=== PATIENT | male | born 1945 ===

== ENCOUNTER 2018-01-31 16:08 | Inpatient (IN) | payer MEDICARE, BC ==
--- NOTE | 2018-01-31 16:28 | ED ---
General Adult HPI - General Chief complaint: Altered Mental Status Stated complaint: Altered Mental Status Time Seen by Provider: 01/31/18 16:15 Source: EMS, RN notes reviewed Mode of arrival: EMS Limitations: altered mental status, physical limitation - History of Present Illness Initial comments: Patient is a 72-year-old male presenting to the emergency department from [facility]. Patient reportedly was unresponsive around 12:30 or so today and then had decreased responsiveness following that. Patient reportedly has returned to baseline at this time. Patient does have a history of aphasia. Patient is unable to provide any significant history at this time. - Related Data Home Medications Medication Instructions Recorded Confirmed ALPRAZolam [Xanax] 0.5 mg PO DAILY 07/04/15 01/31/18 Aspirin [Adult Low Dose Aspirin EC] 81 mg PO HS 07/04/15 01/31/18 Bisacodyl 10 mg RECTAL DIRECTED PRN 07/04/15 01/31/18 Carvedilol [Coreg] 6.25 mg PO BID 07/04/15 01/31/18 Docusate Sodium [Dok] 100 mg PO BID 07/04/15 01/31/18 Latanoprost Ophth [Xalatan 0.005%] 1 drops BOTH EYES HS 07/04/15 01/31/18 Pravastatin Sodium [Pravachol] 40 mg PO HS 07/04/15 01/31/18 amLODIPine BESYLATE [Norvasc] 10 mg PO DAILY 07/04/15 01/31/18 Acetaminophen [Tylenol 8 Hour] 650 mg PO TID@0700,1300,1900 01/31/18 01/31/18 Divalproex Sodium [Depakote 125 mg PO TID@0700,1300,1900 01/31/18 01/31/18 Sprinkle] Furosemide [Lasix] 20 mg PO BID 01/31/18 01/31/18 Memantine [Namenda] 10 mg PO BID 01/31/18 01/31/18 OLANZapine [ZyPREXA] 5 mg PO HS@199901/31/18 01/31/18 Potassium Chloride 8 meq PO DAILY 01/31/18 01/31/18 Timolol 0.25% Ophth Soln [Timoptic 1 drop BOTH EYES DAILY 01/31/18 01/31/18 0.25% Ophth Soln] Allergies Allergy/AdvReac Type Severity Reaction Status Date / Time metoprolol Allergy Unknown Verified 01/31/18 16:18 nefazodone Allergy Rash/Hives Verified 01/31/18 16:18 pneumococcal vaccine Allergy Unknown Verified 01/31/18 16:18 trazodone Allergy Unknown Verified 01/31/18 16:18 Review of Systems ROS Statement: Those systems with pertinent positive or pertinent negative responses have been documented in the HPI. ROS Other: All systems not noted in ROS Statement are negative. Limitations: ROS unobtainable due to patients medical condition Past Medical History Past Medical History: Coronary Artery Disease (CAD), Dementia, GERD/Reflux, Hypertension Additional Past Medical History / Comment(s): aphasia, diff understanding directions, see Dr Woodruff H&P hypertrophic Cardiomyopathy, AICD Implantation, Possible Mitral Valve Repair History of Any Multi-Drug Resistant Organisms: None Reported Past Surgical History: AICD, Orthopedic Surgery Additional Past Surgical History / Comment(s): no other surgical hx at [facility], arthroscopic shoulder surgery Past Anesthesia/Blood Transfusion Reactions: Unable to Obtain, Previous Problems w/ Anesthesia Additional Past Anesthesia/Blood Transfusion Reaction / Comment(s): "major mental status changes" after shoulder surgery per daughter Summer. no family hx at [facility] Type of Cardiac Device: AICD Device Placement Date:: unknown Past Psychological History: Bipolar Smoking Status: Never smoker - Past Family History Mother Family Medical History: Unable to Obtain Additional Family Medical History / Comment(s): no family hx at [facility] General Exam Limitations: altered mental status, physical limitation General appearance: alert, other (Patient is alert and resting comfortably in bed. Patient does follow some simple commands.) Head exam: Present: atraumatic Eye exam: Present: normal appearance, PERRL ENT exam: Present: normal oropharynx Neck exam: Present: normal inspection. Absent: tenderness Respiratory exam: Present: normal lung sounds bilaterally Cardiovascular Exam: Present: regular rate, normal rhythm GI/Abdominal exam: Present: soft. Absent: tenderness Extremities exam: Present: normal inspection. Absent: tenderness Neurological exam: Present: alert, altered, other (Limited exam. Patient is able to wiggle toes on both feet however refuses to attempt to lift legs. 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 Nonverbal.) Expanded Eye Response: (4) open spontaneously Motor Response: (6) obeys commands Verbal Response: (1) no verbal response Psychiatric exam: Present: other (Nonverbal) Skin exam: Present: normal color Course Vital Signs 01/31/18 01/31/18 01/31/18 16:10 17:57 19:08 Temperature 95.4 F L Pulse Rate 71 65 63 Respiratory 16 16 16 Rate Blood Pressure 127/71 106/75 94/64 O2 Sat by Pulse 98 99 98 Oximetry EKG Findings - EKG Comments: EKG Findings:: Paced rhythm at 71. [place] 144. QRS to 2. QTC 496. QTc of 38. Left axis. Wide QRS complex. Nonspecific ST-T. Medical Decision Making - Medical Decision Making Patient reevaluated and resting comfortably in bed. Family updated. Case discussed with practitioner Farrah, covering for Dr. Perdomo, who will admit for Dr. Flores. - Lab Data Result diagrams: 01/31/18 16:31 01/31/18 16:31 Lab Results 01/31/18 01/31/18 01/31/18 Range/Units 16:31 16:31 16:31 WBC 9.4 (3.8-10.6) k/uL RBC 4.65 (4.30-5.90) m/uL Hgb 14.3 (13.0-17.5) gm/dL Hct 43.1 (39.0-53.0) % MCV 92.6 (80.0-100.0) fL MCH 30.8 (25.0-35.0) pg MCHC 33.2 (31.0-37.0) g/dL RDW 13.8 (11.5-15.5) % Plt Count 207 (150-450) k/uL Neutrophils % 69 % Lymphocytes % 19 % Monocytes % 6 % Eosinophils % 3 % Basophils % 0 % Neutrophils # 6.5 (1.3-7.7) k/uL Lymphocytes # 1.8 (1.0-4.8) k/uL Monocytes # 0.6 (0-1.0) k/uL Eosinophils # 0.3 (0-0.7) k/uL Basophils # 0.0 (0-0.2) k/uL PT (9.0-12.0) sec INR (<1.2) APTT (22.0-30.0) sec Sodium 144 (137-145) mmol/L Potassium 4.4 (3.5-5.1) mmol/L Chloride 98 (98-107) mmol/L Carbon Dioxide 34 H (22-30) mmol/L Anion Gap 12 mmol/L BUN 17 (9-20) mg/dL Creatinine 1.09 (0.66-1.25) mg/dL Est GFR (CKD-EPI)AfAm 77 (>60 ml/min/1.73 sqM) Est GFR (CKD-EPI)NonAf 67 (>60 ml/min/1.73 sqM) Glucose 116 H (74-99) mg/dL Calcium 9.1 (8.4-10.2) mg/dL Total Bilirubin 0.5 (0.2-1.3) mg/dL AST 19 (17-59) U/L ALT 23 (21-72) U/L Alkaline Phosphatase 70 (38-126) U/L Total Creatine Kinase 80 (55-170) U/L CK-MB (CK-2) 2.2 (0.0-2.4) ng/mL CK-MB (CK-2) Rel Index 2.8 Troponin I <0.012 (0.000-0.034) ng/mL Total Protein 7.4 (6.3-8.2) g/dL Albumin 4.0 (3.5-5.0) g/dL Urine Color Urine Appearance (Clear) Urine pH (5.0-8.0) Ur Specific [place] (1.001-1.035) Urine Protein (Negative) Urine Glucose (UA) (Negative) Urine Ketones (Negative) Urine Blood (Negative) Urine Nitrite (Negative) Urine Bilirubin (Negative) Urine Urobilinogen (<2.0) mg/dL Ur Leukocyte Esterase (Negative) Urine Opiates Screen (NotDetected) Ur Oxycodone Screen (NotDetected) Urine Methadone Screen (NotDetected) Ur Propoxyphene Screen (NotDetected) Ur Barbiturates Screen (NotDetected) U Tricyclic Antidepress (NotDetected) Ur Phencyclidine Scrn (NotDetected) Ur Amphetamines Screen (NotDetected) U Methamphetamines Scrn (NotDetected) U Benzodiazepines Scrn (NotDetected) Urine Cocaine Screen (NotDetected) U Marijuana (THC) Screen (NotDetected) 01/31/18 01/31/18 Range/Units 16:31 16:50 WBC (3.8-10.6) k/uL RBC (4.30-5.90) m/uL Hgb (13.0-17.5) gm/dL Hct (39.0-53.0) % MCV (80.0-100.0) fL MCH (25.0-35.0) pg MCHC (31.0-37.0) g/dL RDW (11.5-15.5) % Plt Count (150-450) k/uL Neutrophils % % Lymphocytes % % Monocytes % % Eosinophils % % Basophils % % Neutrophils # (1.3-7.7) k/uL Lymphocytes # (1.0-4.8) k/uL Monocytes # (0-1.0) k/uL Eosinophils # (0-0.7) k/uL Basophils # (0-0.2) k/uL PT 11.7 (9.0-12.0) sec INR 1.2 H (<1.2) APTT 25.4 (22.0-30.0) sec Sodium (137-145) mmol/L Potassium (3.5-5.1) mmol/L Chloride (98-107) mmol/L Carbon Dioxide (22-30) mmol/L Anion Gap mmol/L BUN (9-20) mg/dL Creatinine (0.66-1.25) mg/dL Est GFR (CKD-EPI)AfAm (>60 ml/min/1.73 sqM) Est GFR (CKD-EPI)NonAf (>60 ml/min/1.73 sqM) Glucose (74-99) mg/dL Calcium (8.4-10.2) mg/dL Total Bilirubin (0.2-1.3) mg/dL AST (17-59) U/L ALT (21-72) U/L Alkaline Phosphatase (38-126) U/L Total Creatine Kinase (55-170) U/L CK-MB (CK-2) (0.0-2.4) ng/mL CK-MB (CK-2) Rel Index Troponin I (0.000-0.034) ng/mL Total Protein (6.3-8.2) g/dL Albumin (3.5-5.0) g/dL Urine Color Yellow Urine Appearance Clear (Clear) Urine pH 5.5 (5.0-8.0) Ur Specific [place] 1.022 (1.001-1.035) Urine Protein Trace H (Negative) Urine Glucose (UA) Negative (Negative) Urine Ketones Trace H (Negative) Urine Blood Negative (Negative) Urine Nitrite Negative (Negative) Urine Bilirubin Negative (Negative) Urine Urobilinogen 6.0 (<2.0) mg/dL Ur Leukocyte Esterase Negative (Negative) Urine Opiates Screen Not Detected (NotDetected) Ur Oxycodone Screen Not Detected (NotDetected) Urine Methadone Screen Not Detected (NotDetected) Ur Propoxyphene Screen Not Detected (NotDetected) Ur Barbiturates Screen Not Detected (NotDetected) U Tricyclic Antidepress Not Detected (NotDetected) Ur Phencyclidine Scrn Not Detected (NotDetected) Ur Amphetamines Screen Not Detected (NotDetected) U Methamphetamines Scrn Not Detected (NotDetected) U Benzodiazepines Scrn Detected H (NotDetected) Urine Cocaine Screen Not Detected (NotDetected) U Marijuana (THC) Screen Not Detected (NotDetected) - Radiology Data Radiology results: report reviewed (Computed tomography scan of the brain shows no acute process), image reviewed (Chest x-ray shows left greater than right elevated hemidiaphragm.) Disposition Clinical Impression: Syncope, Altered mental status Disposition: ADMITTED IP TO THIS HOSP Is patient prescribed a controlled substance at d/c from ED?: No Referrals: Dudley Flores MD [Primary Care Provider] - 1-2 days Decision Time: 19:11
[2018-01-31 16:42] LABS: Basophils % (A) 0 %; Eosinophils # (A) 0.3 k/uL (0-0.7); Eosinophils % (A) 3 %; HCT 43.1 % (39.0-53.0); HGB 14.3 gm/dL (13.0-17.5); Lymphocytes # (A) 1.8 k/uL (1.0-4.8); Lymphocytes % (A) 19 %; MCH 30.8 pg (25.0-35.0); MCHC 33.2 g/dL (31.0-37.0); MCV 92.6 fL (80.0-100.0); Mean Platelet Volume 7.8; Monocytes # (A) 0.6 k/uL (0-1.0); Monocytes % (A) 6 %; Neutrophils # (A) 6.5 k/uL (1.3-7.7); Neutrophils % (A) 69 %; Platelet Count 207 k/uL (150-450); RBC 4.65 m/uL (4.30-5.90); RDW 13.8 % (11.5-15.5); WBC 9.4 k/uL (3.8-10.6)
[2018-01-31 16:51] LABS: INR 1.2 (<1.2); Partial Thromboplastin Time 25.4 sec (22.0-30.0); Prothrombin Time 11.7 sec (9.0-12.0)
[2018-01-31 16:55] LABS: Calcium 9.1 mg/dL (8.4-10.2); Potassium 4.4 mmol/L (3.5-5.1); Total Bilirubin 0.5 mg/dL (0.2-1.3); Total Protein 7.4 g/dL (6.3-8.2)
[2018-01-31 16:57] LABS: Appearance,Urine Clear (Clear); Bilirubin,Urine Negative (Negative); Blood,Urine Negative (Negative); Color,Urine Yellow; Glucose,Urine (UA) Negative (Negative); Ketones,Urine Trace (Negative); Leukocyte Esterase,Urine Negative (Negative); Nitrite,Urine Negative (Negative); PH, Urine 5.5 (5.0-8.0); Protein,Urine Trace (Negative); Specific Gravity,Urine 1.022 (1.001-1.035)
[2018-01-31 17:05] LABS: Creatine Kinase 80 U/L (55-170)
[2018-01-31 17:09] LABS: Amphetamine Screen,Urine Not Detected (NotDetected); Barbiturate Screen,Urine Not Detected (NotDetected); Benzodiazepines Screen,Urine Detected (NotDetected); Cocaine Screen,Urine Not Detected (NotDetected); Methadone Screen, Urine Not Detected (NotDetected); Opiate Screen,Urine Not Detected (NotDetected); Oxycodone Screen, Urine Not Detected (NotDetected); Phencyclidine Screen,Urine Not Detected (NotDetected); Tricyclic Antidepressant,Urine Not Detected (NotDetected); Urn Cannabinoid Scrn Not Detected (NotDetected)
[2018-01-31 17:17] LABS: Creatine Kinase MB 2.2 ng/mL (0.0-2.4); Troponin I <0.012 ng/mL (0.000-0.034)
--- NOTE | 2018-01-31 18:41 | XR ---
EXAMINATION: XR chest 2V DATE AND TIME: 01/31/2018 5:55 PM ORDERING PROVIDER: Cesar Amezquita DO CLINICAL INDICATION: altered mental status TECHNIQUE: PA and lateral COMPARISON: None. DESCRIPTION: The left hemidiaphragm is markedly elevated, up to the level of the nathalie. There are no prior studie s with which to compare and, so, this finding cannot be assessed for chronicity. It is presumed that the finding is chronic. The elevated left hemidiaphragm are markedly limits visualization of the mid and lower left lung, but the left upper lung zone appears clear. The visualized right lung is clear, although the right hemid iaphragm is mild moderately elevated. Lungs are negative for evidence of pulmonary edema or definite focal consolidative opacity. There is no evident pneumothorax or pneumoperitoneum. The cardiac silhouette appears moderately enlarged. Cardiac pacemaker and sternal sutures are noted. Bones and soft tissues are negative for acute findings. IMPRESSION: Markedly elevated left hemidiaphragm and mild/moderate elevation of the right hemidiaphragm.
--- NOTE | 2018-01-31 18:47 | CT ---
EXAMINATION: CT brain wo con DATE AND TIME: 01/31/2018 6:35 PM ORDERING PROVIDER: Cesar Amezquita DO CLINICAL INDICATION: altered mental status TECHNIQUE: Standard departmental protocol. COMPARISON: None. DESCRIPTION: The calvarium is intact. There is no intracranial hemorrhage. There is no mass or mass e ffect. There is no definite new attenuation defect. Remainder of the intra-axial and extra-axial comp artment examination is unremarkable. The paranasal sinuses, middle ear cavities, and mastoid sinus ai r cells are clear. The orbits are intact. IMPRESSION: NO ACUTE PROCESS.
[2018-01-31] MEDS ORDERED: NALOXONE 0.4 MG/ML 1 ML VIAL IV PRN (19:11)
[2018-01-31] MEDS: SODIUM CHLORIDE 0.9% 1,000 ML IV SCH (21:44)
[2018-02-01] MEDS ORDERED: HALOPERIDOL LACTATE 5 MG/ML 1 ML VIAL IM PRN (09:31)
[2018-02-01] MEDS ORDERED: BISACODYL 10 MG SUPP RECTAL PRN (09:32)
[2018-02-01] MEDS: FUROSEMIDE 20 MG TAB PO SCH ×2 (11:21→17:33)
[2018-02-01] MEDS: CARVEDILOL 6.25 MG TAB PO SCH ×2 (11:21→17:33)
[2018-02-01] MEDS: DOCUSATE 100 MG CAP PO SCH ×2 (11:21→23:53)
[2018-02-01] MEDS: MEMANTINE 10 MG TAB PO SCH ×2 (11:23→23:51)
[2018-02-01] MEDS: TIMOLOL 0.25% OPHTH DROPS 5 ML BTL BOTH EYES SCH (11:24)
[2018-02-01] MEDS: POTASSIUM CHLORIDE ER 10 MEQ TAB.ER.PRT PO SCH (11:24)
--- NOTE | 2018-02-01 14:02 | P.CRDCN ---
History of Present Illness History of present illness: Mr. Silva is a pleasant 72-year-old male past medical history significant for hypertrophic obstructive cardiomyopathy, non-sustained ventricular tachycardia s/p ICD most recent changes in change performed in 2014 placement, dementia, hypertension, dementia, aphasia, mitral valve repair and dyslipidemia. He follows with Dr. Reid in the office. We have been asked to see him in consultation for syncope. He lives in a senior care and apparently was unresponsive and for that reason was brought to the hospital for evaluation. At the time of my exam he is sitting up in bed eating breakfast. He is grinding his teeth quite loudly. He is alert however not responding to my questions. Unsure of his baseline level of communication. He shakes his head no when asked if he is having chest pain, shortness of breath, palpitations, dizziness, nausea or vomiting. Most history is taken from the chart. EKG reveals ventricular paced rhythm. Chest xray shows elevated hemidiaphragm. CT brain negative for an acute intracranial process. Laboratory data reviewed, hemoglobin 14.3, platelets 207, INR 1.2, sodium 144, potassium 4.4, creatinine 1.09, cardiac enzymes negative 3. Urine drug screen positive for benzodiazepines. Current cardiac medications include Norvasc 10 mg daily, aspirin 81 mg daily, pravastatin 40 mg daily, carvedilol 6.25 mg twice a day and Lasix 20 mg twice a day. He also takes Depakote, Namenda, Xanax and Zyprexa. Review of Systems ROS unobtainable: due to mental status Past Medical History Past Medical History: Coronary Artery Disease (CAD), Dementia, GERD/Reflux, Hypertension Additional Past Medical History / Comment(s): aphasia, diff understanding directions, see Dr Woodruff H&P hypertrophic Cardiomyopathy, AICD Implantation, Possible Mitral Valve Repair History of Any Multi-Drug Resistant Organisms: None Reported Past Surgical History: AICD, Orthopedic Surgery Additional Past Surgical History / Comment(s): no other surgical hx at [facility], arthroscopic shoulder surgery Past Anesthesia/Blood Transfusion Reactions: Unable to Obtain, Previous Problems w/ Anesthesia Additional Past Anesthesia/Blood Transfusion Reaction / Comment(s): "major mental status changes" after shoulder surgery per daughter Summer. no family hx at [facility] Type of Cardiac Device: AICD Device Placement Date:: unknown Past Psychological History: Bipolar Smoking Status: Never smoker Past Alcohol Use History: None Reported Past Drug Use History: None Reported - Past Family History Mother Family Medical History: Unable to Obtain Additional Family Medical History / Comment(s): no family hx at [facility] Medications and Allergies Home Medications Medication Instructions Recorded Confirmed Type ALPRAZolam [Xanax] 0.5 mg PO DAILY 07/04/15 01/31/18 History Aspirin [Adult Low Dose Aspirin EC] 81 mg PO HS 07/04/15 01/31/18 History Bisacodyl 10 mg RECTAL DIRECTED PRN 07/04/15 01/31/18 History Carvedilol [Coreg] 6.25 mg PO BID 07/04/15 01/31/18 History Docusate Sodium [Dok] 100 mg PO BID 07/04/15 01/31/18 History Latanoprost Ophth [Xalatan 0.005%] 1 drops BOTH EYES HS 07/04/15 01/31/18 History Pravastatin Sodium [Pravachol] 40 mg PO HS 07/04/15 01/31/18 History amLODIPine BESYLATE [Norvasc] 10 mg PO DAILY 07/04/15 01/31/18 History Acetaminophen [Tylenol 8 Hour] 650 mg PO TID@0700,1300,1900 01/31/18 01/31/18 History Divalproex Sodium [Depakote 125 mg PO TID@0700,1300,1900 01/31/18 01/31/18 History Sprinkle] Furosemide [Lasix] 20 mg PO BID 01/31/18 01/31/18 History Memantine [Namenda] 10 mg PO BID 01/31/18 01/31/18 History OLANZapine [ZyPREXA] 5 mg PO HS@199901/31/18 01/31/18 History Potassium Chloride 8 meq PO DAILY 01/31/18 01/31/18 History Timolol 0.25% Ophth Soln [Timoptic 1 drop BOTH EYES DAILY 01/31/18 01/31/18 History 0.25% Ophth Soln] Allergies Allergy/AdvReac Type Severity Reaction Status Date / Time metoprolol Allergy Unknown Verified 01/31/18 16:18 nefazodone Allergy Rash/Hives Verified 01/31/18 16:18 pneumococcal vaccine Allergy Unknown Verified 01/31/18 16:18 trazodone Allergy Unknown Verified 01/31/18 16:18 Physical Exam Vitals: Vital Signs Temp Pulse Pulse Resp BP BP Pulse Ox 02/01/18 07:00 97.0 F L 72 18 128/83 98 01/31/18 22:15 97.0 F L 69 16 105/71 96 01/31/18 20:20 97.0 F L 60 16 130/71 98 01/31/18 19:08 63 16 94/64 98 01/31/18 17:57 65 16 106/75 99 01/31/18 16:10 95.4 F L 71 16 127/71 98 Intake and Output 01/31/18 02/01/18 02/01/18 22:59 06:59 14:59 Other: # Voids 0 1 Weight 108.862 kg Blood pressure 128/83 heart rate 72 afebrile maintaining oxygen saturation on room air GENERAL: This is a 72-year-old -[place] male in no apparent distress at the time of my examination. HEENT: Head is atraumatic, normocephalic. Pupils are equal, round. Sclerae anicteric. Conjunctivae are clear. Mucous membranes of the mouth are moist. Neck is supple. There is no jugular venous distention. No carotid bruit is heard. LUNGS: Clear to auscultation no wheezes, rales or rhonchi. No chest wall tenderness is noted on palpation or with deep breathing. HEART: Regular rate and rhythm with no murmur, no rubs or gallops. S1 and S2 heard. ABDOMEN: Soft, nontender. Bowel sounds are heard. No organomegaly noted. EXTREMITIES: No evidence of peripheral edema and no calf tenderness noted. VASCULAR: Radial and dorsalis pedis pulses palpated, no evidence of clubbing. NEUROLOGIC: Patient is awake, alert and oriented, nonverbal. Results 01/31/18 16:31 01/31/18 16:31 Cardiac Enzymes 01/31/18 01/31/18 01/31/18 Range/Units 16:31 16:31 21:50 AST 19 (17-59) U/L CK-MB (CK-2) 2.2 (0.0-2.4) ng/mL Troponin I <0.012 <0.012 (0.000-0.034) ng/mL 02/01/18 Range/Units 05:22 AST (17-59) U/L CK-MB (CK-2) (0.0-2.4) ng/mL Troponin I <0.012 (0.000-0.034) ng/mL Coagulation 01/31/18 Range/Units 16:31 PT 11.7 (9.0-12.0) sec APTT 25.4 (22.0-30.0) sec CBC 01/31/18 Range/Units 16:31 WBC 9.4 (3.8-10.6) k/uL RBC 4.65 (4.30-5.90) m/uL Hgb 14.3 (13.0-17.5) gm/dL Hct 43.1 (39.0-53.0) % Plt Count 207 (150-450) k/uL Comprehensive Metabolic Panel 01/31/18 Range/Units 16:31 Sodium 144 (137-145) mmol/L Potassium 4.4 (3.5-5.1) mmol/L Chloride 98 (98-107) mmol/L Carbon Dioxide 34 H (22-30) mmol/L BUN 17 (9-20) mg/dL Creatinine 1.09 (0.66-1.25) mg/dL Glucose 116 H (74-99) mg/dL Calcium 9.1 (8.4-10.2) mg/dL AST 19 (17-59) U/L ALT 23 (21-72) U/L Alkaline Phosphatase 70 (38-126) U/L Total Protein 7.4 (6.3-8.2) g/dL Albumin 4.0 (3.5-5.0) g/dL Current Medications Generic Name Dose Route Start Last Admin Trade Name Freq PRN Reason Stop Dose Admin Acetaminophen 650 mg 02/01/18 13:00 Tylenol Tab PO TID@0700,1300,1900 [facility] Aspirin 81 mg 02/01/18 21:00 Aspirin PO HS [facility] Bisacodyl 10 mg 02/01/18 09:32 Dulcolax RECTAL DIRECTED PRN No BM in 4 days Carvedilol 6.25 mg 02/01/18 09:45 02/01/18 11:21 Coreg PO Not Given BID-W/MEALS [facility] Divalproex Sodium 125 mg 02/01/18 13:00 Depakote Sprinkle PO TID@0700,1300,1900 SARAH Docusate Sodium 100 mg 02/01/18 09:45 02/01/18 11:21 Colace PO Not Given BID SARAH Furosemide 20 mg 02/01/18 09:45 02/01/18 11:21 Lasix PO Not Given BID@0900,1600 SARAH Haloperidol Lactate 2 mg 02/01/18 09:31 Haldol IM Q4HR PRN Agitation or Acute Psychosis Sodium Chloride 1,000 mls @ 20 mls/hr 01/31/18 19:15 01/31/18 21:44 Saline 0.9% IV Not Given .Q24H SARAH Latanoprost 1 drops 02/01/18 21:00 Xalatan 0.005% BOTH EYES HS SARAH Memantine 10 mg 02/01/18 09:45 02/01/18 11:23 Namenda PO Not Given BID SARAH Naloxone HCl 0.2 mg 01/31/18 19:11 Narcan IV Q2M PRN Opioid Reversal Potassium Chloride 10 meq 02/01/18 09:45 02/01/18 11:24 K-Dur 10 PO Not Given DAILY SARAH Pravastatin Sodium 40 mg 02/01/18 21:00 Pravachol PO HS SARAH Timolol Maleate 1 drops 02/01/18 09:45 02/01/18 11:24 Timoptic BOTH EYES Not Given DAILY SARAH Intake and Output 01/31/18 02/01/18 02/01/18 22:59 06:59 14:59 Other: # Voids 0 1 Weight 108.862 kg 01/31/18 16:31 01/31/18 16:31 Assessment and Plan Assessment: ASSESSMENT Possible syncopal episode. Unclear of the details surrounding this event. History of hypertrophic obstructive cardiomyopathy Dyslipidemia Hypertension Dementia History of ICD in place PLAN Obtain 2D echocardiogram and doppler study to assess cardiac structure and function. Interrogate [employer] device for evidence of acute arrhythmia. Continue carvedilol, Lasix, aspirin and pravastatin as previously ordered. Agree with holding amlodipine for hypotension. Further recommendations to follow based upon clinical course. Thank you kindly for this consultation. Nurse Practitioner note has been reviewed, I agree with a documented findings and plan of care. Patient was seen and examined.
[2018-02-01] MEDS: ACETAMINOPHEN TAB 325 MG TAB PO SCH (14:23)
[2018-02-01] MEDS: DIVALPROEX SPRINKLE 125 MG CAP.SPRINK PO SCH ×2 (14:23→23:52)
--- NOTE | 2018-02-01 14:32 | P.HPIM ---
History of Present Illness H&P Date: 02/01/18 Chief Complaint: Unresponsive Patient is a 72-year-old male with a known history of hypertrophic obstructive cardiomyopathy and status post AICD placement, history of mitral valve repair and bipolar disorder and dementia who is currently in the jail. Patient was unresponsive around 12:30 PM yesterday. Patient returned back to baseline by the time he to the hospital. As per the family patient is at baseline currently. Patient otherwise cannot provide any history and is aphasic. Otherwise patient is alert and awake. Cardiology and neurology was consulted. Patient refused to get 2-D echocardiogram this morning. Patient is refusing lab draws as well. Patient was started back on home blood pressure medications and most of the history was taken from the medical records and ER note. Patient does not have any fever or chills. No acute source of vomiting. No diarrhea. Complete review of systems could not be obtained from the patient EKG showed ventricular pacer rhythm Chest x-ray showed markedly elevated left hemidiaphragm and mid/moderate elevation of the right hemidiaphragm. CT head showed no acute intracranial process. Troponin 3 negative WBC 9.4 Past Medical History Past Medical History: Coronary Artery Disease (CAD), Dementia, GERD/Reflux, Hypertension Additional Past Medical History / Comment(s): aphasia, diff understanding directions, see Dr Woodruff H&P hypertrophic Cardiomyopathy, AICD Implantation, Possible Mitral Valve Repair History of Any Multi-Drug Resistant Organisms: None Reported Past Surgical History: AICD, Orthopedic Surgery Additional Past Surgical History / Comment(s): no other surgical hx at [facility], arthroscopic shoulder surgery Past Anesthesia/Blood Transfusion Reactions: Unable to Obtain, Previous Problems w/ Anesthesia Additional Past Anesthesia/Blood Transfusion Reaction / Comment(s): "major mental status changes" after shoulder surgery per daughter Summer. no family hx at [facility] Type of Cardiac Device: AICD Device Placement Date:: unknown Past Psychological History: Bipolar Smoking Status: Never smoker Past Alcohol Use History: None Reported Past Drug Use History: None Reported - Past Family History Mother Family Medical History: Unable to Obtain Additional Family Medical History / Comment(s): no family hx at [facility] Medications and Allergies Home Medications Medication Instructions Recorded Confirmed Type ALPRAZolam [Xanax] 0.5 mg PO DAILY 07/04/15 01/31/18 History Aspirin [Adult Low Dose Aspirin EC] 81 mg PO HS 07/04/15 01/31/18 History Bisacodyl 10 mg RECTAL DIRECTED PRN 07/04/15 01/31/18 History Carvedilol [Coreg] 6.25 mg PO BID 07/04/15 01/31/18 History Docusate Sodium [Dok] 100 mg PO BID 07/04/15 01/31/18 History Latanoprost Ophth [Xalatan 0.005%] 1 drops BOTH EYES HS 07/04/15 01/31/18 History Pravastatin Sodium [Pravachol] 40 mg PO HS 07/04/15 01/31/18 History amLODIPine BESYLATE [Norvasc] 10 mg PO DAILY 07/04/15 01/31/18 History Acetaminophen [Tylenol 8 Hour] 650 mg PO TID@0700,1300,1900 01/31/18 01/31/18 History Divalproex Sodium [Depakote 125 mg PO TID@0700,1300,1900 01/31/18 01/31/18 History Sprinkle] Furosemide [Lasix] 20 mg PO BID 01/31/18 01/31/18 History Memantine [Namenda] 10 mg PO BID 01/31/18 01/31/18 History OLANZapine [ZyPREXA] 5 mg PO HS@199901/31/18 01/31/18 History Potassium Chloride 8 meq PO DAILY 01/31/18 01/31/18 History Timolol 0.25% Ophth Soln [Timoptic 1 drop BOTH EYES DAILY 01/31/18 01/31/18 History 0.25% Ophth Soln] Allergies Allergy/AdvReac Type Severity Reaction Status Date / Time metoprolol Allergy Unknown Verified 01/31/18 16:18 nefazodone Allergy Rash/Hives Verified 01/31/18 16:18 pneumococcal vaccine Allergy Unknown Verified 01/31/18 16:18 trazodone Allergy Unknown Verified 01/31/18 16:18 Physical Exam Vitals: Vital Signs Temp Pulse Pulse Resp BP BP Pulse Ox 02/01/18 07:00 97.0 F L 72 18 128/83 98 01/31/18 22:15 97.0 F L 69 16 105/71 96 01/31/18 20:20 97.0 F L 60 16 130/71 98 07/10/18 19:08 63 16 94/64 98 01/31/18 17:57 65 16 106/75 99 01/31/18 16:10 95.4 F L 71 16 127/71 98 Intake and Output 01/31/18 02/01/18 02/01/18 22:59 06:59 14:59 Other: # Voids 0 1 Weight 108.862 kg PHYSICAL EXAMINATION: Patient is lying in the bed comfortably, no acute distress, awake alert but nonverbal. HEENT: Normocephalic. Neck is supple. Pupils reactive. Nostrils clear. Oral cavity is moist. Ears reveal no drainage. Neck reveals no JVD, carotid bruits, or thyromegaly. CHEST EXAMINATION: Trachea is central. Symmetrical expansion. Lung reyes clear to auscultation and percussion. CARDIAC: Normal S1, S2 with no gallops. No murmurs ABDOMEN: Soft. Bowel sounds normal. No organomegaly. No abdominal bruits. Extremities: reveal no edema. No clubbing or cyanosis Neurologically awake, alert, nonverbal. with well-coordinated movements. No focal deficits noted Skin: No rash or skin lesions. Psychiatric: Noncooperative. Refuses to take medications and tests. Musculoskeletal: No joint swelling or deformity. Normal range of motion. Results CBC & Chem 7: 01/31/18 16:31 01/31/18 16:31 Labs: Abnormal Lab Results - Last 24 Hours (Table) 01/31/18 01/31/18 01/31/18 Range/Units 16:31 16:31 16:50 INR 1.2 H (<1.2) Carbon Dioxide 34 H (22-30) mmol/L Glucose 116 H (74-99) mg/dL Urine Protein Trace H (Negative) Urine Ketones Trace H (Negative) U Benzodiazepines Scrn Detected H (NotDetected) Thrombosis Risk Factor Assmnt - DVT/VTE Prophylaxis DVT/VTE Prophylaxis: Pharmacologic Prophylaxis ordered - Choose All That Apply Each Risk Factor Represents 2 Points: Age 61-74 years Thrombosis Risk Factor Assessment Total Risk Factor Score: 2 Thrombosis Risk Factor Assessment Level: Low Risk Assessment and Plan Assessment: Altered mental status likely due to underlying dementia. Rule out arrhythmia versus syncopal episode. Hypertrophic obstructive cardiomyopathy. Status post ICD placement Hypertension controlled Dementia Hyperlipidemia Baseline dysphagia and difficulty understand directions DVT prophylaxis GERD Osteoarthritis Bipolar disorder Plan: Patient will be continued on home blood pressure medications including Coreg and Lasix. Norvasc on hold due to hypotension. Patient was seen by cardiology and slight interrogate ICD and 2-D echocardiogram was ordered. Otherwise patient is at baseline mental status at this time. Chest x-ray and UA negative. No other signs of infection noted. Continue the current management and anticipate discharged back to jail in next 24 hours. Patient is refusing to get lab draws as well as any imaging studies. Prognosis is guarded. Discussed with the family. Time with Patient: Greater than 30
[2018-02-01 16:25] VITALS: TEMP 98
[2018-02-01] MEDS: HEPARIN SODIUM,PORCINE 5,000 UNIT/ML 1 ML VIAL SQ SCH ×2 (17:33→23:52)
--- NOTE | 2018-02-01 19:11 | P.CNNES ---
History of Present Illness Consult date: 02/01/18 History of Present Illness: The patient is a 72-year-old man, resident of a [facility], who apparently was found unresponsive at the [facility]. He is currently awake alert and sitting up in bed but has dementia and apparently some a aphasia. He has a history of a aphasia and dementia. He does speak a few words and does follow some simple commands such as raising legs and arms. He had a CT brain which was negative. The patient was admitted to the hospital with syncope and altered mental status. Review of Systems ROS unobtainable: due to mental status Past Medical History Past Medical History: Coronary Artery Disease (CAD), Dementia, GERD/Reflux, Hypertension Additional Past Medical History / Comment(s): aphasia, diff understanding directions, see Dr Woodruff H&P hypertrophic Cardiomyopathy, AICD Implantation, Possible Mitral Valve Repair History of Any Multi-Drug Resistant Organisms: None Reported Past Surgical History: AICD, Orthopedic Surgery Additional Past Surgical History / Comment(s): no other surgical hx at [facility], arthroscopic shoulder surgery Past Anesthesia/Blood Transfusion Reactions: Unable to Obtain, Previous Problems w/ Anesthesia Additional Past Anesthesia/Blood Transfusion Reaction / Comment(s): "major mental status changes" after shoulder surgery per daughter Summer. no family hx at [facility] Type of Cardiac Device: AICD Device Placement Date:: unknown Past Psychological History: Bipolar Smoking Status: Never smoker Past Alcohol Use History: None Reported Past Drug Use History: None Reported - Past Family History Mother Family Medical History: Unable to Obtain Additional Family Medical History / Comment(s): no family hx at [facility] Medications and Allergies Home Medications Medication Instructions Recorded Confirmed Type ALPRAZolam [Xanax] 0.5 mg PO DAILY 07/04/15 01/31/18 History Aspirin [Adult Low Dose Aspirin EC] 81 mg PO HS 07/04/15 01/31/18 History Bisacodyl 10 mg RECTAL DIRECTED PRN 07/04/15 01/31/18 History Carvedilol [Coreg] 6.25 mg PO BID 07/04/15 01/31/18 History Docusate Sodium [Dok] 100 mg PO BID 07/04/15 01/31/18 History Latanoprost Ophth [Xalatan 0.005%] 1 drops BOTH EYES HS 07/04/15 01/31/18 History Pravastatin Sodium [Pravachol] 40 mg PO HS 07/04/15 01/31/18 History amLODIPine BESYLATE [Norvasc] 10 mg PO DAILY 07/04/15 01/31/18 History Acetaminophen [Tylenol 8 Hour] 650 mg PO TID@0700,1300,1900 01/31/18 01/31/18 History Divalproex Sodium [Depakote 125 mg PO TID@0700,1300,1900 01/31/18 01/31/18 History Sprinkle] Furosemide [Lasix] 20 mg PO BID 01/31/18 01/31/18 History Memantine [Namenda] 10 mg PO BID 01/31/18 01/31/18 History OLANZapine [ZyPREXA] 5 mg PO HS@199901/31/18 01/31/18 History Potassium Chloride 8 meq PO DAILY 01/31/18 01/31/18 History Timolol 0.25% Ophth Soln [Timoptic 1 drop BOTH EYES DAILY 01/31/18 01/31/18 History 0.25% Ophth Soln] Allergies Allergy/AdvReac Type Severity Reaction Status Date / Time metoprolol Allergy Unknown Verified 01/31/18 16:18 nefazodone Allergy Rash/Hives Verified 01/31/18 16:18 pneumococcal vaccine Allergy Unknown Verified 01/31/18 16:18 trazodone Allergy Unknown Verified 01/31/18 16:18 Physical Examination - Vital Signs Vital Signs: Vital Signs Temp Pulse Pulse Resp BP BP Pulse Ox 02/01/18 15:00 98.0 F 78 18 104/66 92 L 02/01/18 07:00 97.0 F L 72 18 128/83 98 01/31/18 22:15 97.0 F L 69 16 105/71 96 01/31/18 20:20 97.0 F L 60 16 130/71 98 01/31/18 19:08 63 16 94/64 98 Intake and Output 02/01/18 02/01/18 02/01/18 06:59 14:59 22:59 Other: # Voids 1 1 # Bowel Movements 1 - Constitutional General appearance: average body habitus - Respiratory Respiratory: lungs clear - Cardiovascular Cardiovascular: regular rate - Integumentary Integumentary: rash - Neurologic Neurologic examination mental status patient was sitting up in bed eating his dinner. He does have a aphasia but she did say a few words. He did not follow commands. He was able to do some simple commands such as lift arm and left leg open-mouth etc. Cranial nerve examination is no facial asymmetry MOTOR examination he was able to move all extremities equally Results - Laboratory Findings CBC and BMP: 01/31/18 16:31 01/31/18 16:31 Abnormal Lab Findings: Abnormal Labs 01/31/18 01/31/18 01/31/18 16:31 16:31 16:50 INR 1.2 H Carbon Dioxide 34 H Glucose 116 H Urine Protein Trace H Urine Ketones Trace H U Benzodiazepines Scrn Detected H Assessment and Plan (1) Altered mental status Current Visit: Yes Status: Acute SNOMED Code(s): 059072862 (2) Syncope Current Visit: Yes Status: Acute Code(s): R55 - SYNCOPE AND COLLAPSE SNOMED Code(s): 645654728 Plan: The patient is a 72-year-old man who was transferred from [facility] emergency room with unresponsive episode. He was admitted with syncopal episode and altered mental status. Patient was on reliable historian. He has dementia as well as a aphasia. CT of the brain was negative. Recommend carotid ultrasound and EEG. Rule out underlying seizure activity.
[2018-02-01] MEDS ORDERED: PRAVASTATIN SODIUM 40 MG TAB PO SCH (21:00)
[2018-02-01] MEDS ORDERED: ASPIRIN 81 MG PO SCH (21:00)
[2018-02-01] MEDS ORDERED: LATANOPROST 0.005% OPHTH DROPS 2.5 ML BTL BOTH EYES SCH (21:00)
[2018-02-02] MEDS: ACETAMINOPHEN TAB 325 MG TAB PO SCH ×3 (00:05→13:29)
[2018-02-02] MEDS: SODIUM CHLORIDE 0.9% 1,000 ML IV SCH (00:07)
[2018-02-02 00:11] VITALS: BP 107/59; PULSE 66
[2018-02-02] MEDS: HEPARIN SODIUM,PORCINE 5,000 UNIT/ML 1 ML VIAL SQ SCH ×2 (08:58→15:47)
[2018-02-02] MEDS: MEMANTINE 10 MG TAB PO SCH (08:58)
[2018-02-02] MEDS: FUROSEMIDE 20 MG TAB PO SCH ×2 (08:58→15:47)
[2018-02-02] MEDS: POTASSIUM CHLORIDE ER 10 MEQ TAB.ER.PRT PO SCH (08:58)
[2018-02-02] MEDS: CARVEDILOL 6.25 MG TAB PO SCH (08:58)
[2018-02-02] MEDS: DIVALPROEX SPRINKLE 125 MG CAP.SPRINK PO SCH ×2 (08:58→13:29)
[2018-02-02] MEDS: DOCUSATE 100 MG CAP PO SCH (08:58)
[2018-02-02] MEDS: TIMOLOL 0.25% OPHTH DROPS 5 ML BTL BOTH EYES SCH (08:58)
[2018-02-02] MEDS ORDERED: amLODIPine 10 MG TAB PO SCH (09:00)
[2018-02-02 10:47] VITALS: RESP 16
--- NOTE | 2018-02-02 14:08 | P.DS ---
Providers Date of admission: 01/31/18 19:11 Expected date of discharge: 02/02/18 Attending physician: Amairani Luna Consults: 01/31/18 19:12 Consult Physician Routine Consulting Provider: Jean-Paul Stein Consult Reason/Comments: syncope Do you want consulting provider notified?: Yes Consult Physician Urgent Consulting Provider: Wes Chong Consult Reason/Comments: syncope, ams Do you want consulting provider notified?: Yes Primary care physician: Dudley Flores Hospital Course: Final Diagnoses: Altered mental status likely due to underlying dementia. Rule out arrhythmia versus syncopal episode. Hypertrophic obstructive cardiomyopathy. Status post ICD placement Hypertension controlled Dementia Hyperlipidemia Baseline dysphagia and difficulty understand directions DVT prophylaxis GERD Osteoarthritis Bipolar disorder Hospital course:Patient is a 72-year-old male with a known history of hypertrophic obstructive cardiomyopathy and status post AICD placement, history of mitral valve repair and bipolar disorder and dementia who is currently in the custodial. Patient was unresponsive around 12:30 PM yesterday. Patient returned back to baseline by the time he to the hospital. As per the family patient is at baseline currently. Patient otherwise cannot provide any history and is aphasic. Otherwise patient is alert and awake. Cardiology and neurology was consulted. Patient refused to get 2-D echocardiogram this morning. Patient is refusing lab draws as well. Patient was started back on home blood pressure medications and most of the history was taken from the medical records and ER note. Patient does not have any fever or chills. No acute source of vomiting. No diarrhea. Complete review of systems could not be obtained from the patient EKG showed ventricular pacer rhythm Chest x-ray showed markedly elevated left hemidiaphragm and mid/moderate elevation of the right hemidiaphragm. CT head showed no acute intracranial process. Troponin 3 negative WBC 9.4 Patient continued on home blood pressure medications including Coreg and Lasix. Norvasc on hold due to hypotension. Patient was evaluated by cardiology and neurology. AICD interrogation,2-D echocardiogram was ordered. Per family, patient is at baseline mental status. Chest x-ray and UA negative. No other signs of infection noted. Patient is refusing to get lab draws, as well as any imaging studies/further workup as recommended per neurology and cardiology. Prognosis is guarded. Discussed with the family.Patient is being discharged to subacute rehab in a stable condition with guarded prognosis. EXAMINATION: Patient is lying in the bed comfortably, no acute distress, awake alert but nonverbal. CHEST EXAMINATION: Trachea is central. Symmetrical expansion. Lung reyes clear to auscultation and percussion. CARDIAC: Normal S1, S2 with no gallops. No murmurs ABDOMEN: Soft. Bowel sounds normal. No organomegaly. No abdominal bruits. Neurologically No focal deficits noted Psychiatric: Noncooperative. Refuses to take medications and tests. The impression and plan of care has been dictated as directed. : I performed a history and examination of this patient, discussed the same with the dictator. I agree with the dictator's note ,documented as a scribe. Any additional findings or plans will be noted. Time taken: 35 minutes Patient Condition at Discharge: Stable Plan - Discharge Summary Discharge Rx Participant: No New Discharge Prescriptions: Continue Carvedilol [Coreg] 6.25 mg PO BID Bisacodyl 10 mg RECTAL DIRECTED PRN PRN Reason: No BM in 4 days Docusate Sodium [Dok] 100 mg PO BID Aspirin [Adult Low Dose Aspirin EC] 81 mg PO HS Latanoprost Ophth [Xalatan 0.005%] 1 drops BOTH EYES HS Pravastatin Sodium [Pravachol] 40 mg PO HS Memantine [Namenda] 10 mg PO BID Acetaminophen [Tylenol 8 Hour] 650 mg PO TID@0700,1300,1900 Furosemide [Lasix] 20 mg PO BID Timolol 0.25% Ophth Soln [Timoptic 0.25% Ophth Soln] 1 drop BOTH EYES DAILY Potassium Chloride 8 meq PO DAILY OLANZapine [ZyPREXA] 5 mg PO HS@2000 Divalproex Sodium [Depakote Sprinkle] 125 mg PO TID@0700,1300,1900 Discontinued ALPRAZolam [Xanax] 0.5 mg PO DAILY amLODIPine BESYLATE [Norvasc] 10 mg PO DAILY Discharge Medication List Aspirin [Adult Low Dose Aspirin EC] 81 mg PO HS 07/04/15 [History] Bisacodyl 10 mg RECTAL DIRECTED PRN 07/04/15 [History] Carvedilol [Coreg] 6.25 mg PO BID 07/04/15 [History] Docusate Sodium [Dok] 100 mg PO BID 07/04/15 [History] Latanoprost Ophth [Xalatan 0.005%] 1 drops BOTH EYES HS 07/04/15 [History] Pravastatin Sodium [Pravachol] 40 mg PO HS 07/04/15 [History] Acetaminophen [Tylenol 8 Hour] 650 mg PO TID@0700,1300,1900 01/31/18 [History] Divalproex Sodium [Depakote Sprinkle] 125 mg PO TID@0700,1300,1900 01/31/18 [ History] Furosemide [Lasix] 20 mg PO BID 01/31/18 [History] Memantine [Namenda] 10 mg PO BID 01/31/18 [History] OLANZapine [ZyPREXA] 5 mg PO HS@199901/31/18 [History] Potassium Chloride 8 meq PO DAILY 01/31/18 [History] Timolol 0.25% Ophth Soln [Timoptic 0.25% Ophth Soln] 1 drop BOTH EYES DAILY 05/11 [History] Follow up Appointment(s)/Referral(s): Dudley Flores MD [Primary Care Provider] - 3 Days Jean-Paul Stein MD [STAFF PHYSICIAN] - 1 Week Carolyn Chong MD [STAFF PHYSICIAN] - 2 Weeks Patient Instructions/Handouts: Syncope (DC) Activity/Diet/Wound Care/Special Instructions: [facility] Up with assist, fall precautions, change position every 2 hours while awake. DNR code status. Cardiac diet. Assist with meals. cbc,bmp in 3 days
--- NOTE | 2018-02-02 14:17 | P.PCN ---
Preoperative Diagnosis: Dual-chamber ICD, [employer] interrogated DinaGEN ICD D1 53 Charge time 10.1 seconds. Battery life 10.5 years P waves 4.6 mV pacing impedance 402 ohms Pacemaker dependent, RV pacing impedance 416 ohms pacing threshold 1 warted 0.5 ms Shocking impedance 43 ohms Tachycardia therapies at 175 and 205 beats a minute with antitachycardia pacing ramp pacing as well as cardioversions and defibrillations Nonsustained run of atrial tachycardia, brief Impression Normal dual-chamber ICD function Very brief, short runs of nonsustained atrial tachycardia without a significant increase in heart rate
--- NOTE | 2018-02-02 16:20 | P.PN ---
Subjective Progress Note Date: 02/02/18 Progress note being dictated for Dr. Luna. Interval history:Patient is a 72-year-old male with a known history of hypertrophic obstructive cardiomyopathy and status post AICD placement, history of mitral valve repair and bipolar disorder and dementia who is currently in the correction. Patient was unresponsive around 12:30 PM yesterday. Patient returned back to baseline by the time he to the hospital. As per the family patient is at baseline currently. Patient otherwise cannot provide any history and is aphasic. Otherwise patient is alert and awake. Cardiology and neurology was consulted. Patient refused to get 2-D echocardiogram this morning. Patient is refusing lab draws as well. Patient was started back on home blood pressure medications and most of the history was taken from the medical records and ER note. Patient does not have any fever or chills. No acute source of vomiting. No diarrhea. Complete review of systems could not be obtained from the patient EKG showed ventricular pacer rhythm Chest x-ray showed markedly elevated left hemidiaphragm and mid/moderate elevation of the right hemidiaphragm. CT head showed no acute intracranial process. Troponin 3 negative WBC 9.4 Patient continued on home blood pressure medications including Coreg and Lasix. Norvasc on hold due to hypotension. Patient was evaluated by cardiology and neurology. AICD interrogation,2-D echocardiogram was ordered. Per family, patient is at baseline mental status. Chest x-ray and UA negative. No other signs of infection noted. Patient is refusing to get lab draws, as well as any imaging studies/further workup as recommended per neurology and cardiology. Attempting to interrogate pacemaker. Objective - Vital Signs Vital signs: Vital Signs Temp 98.0 F 02/01/18 23:00 Pulse 66 02/01/18 23:00 Resp 16 02/02/18 08:15 BP 107/59 02/01/18 23:00 Pulse Ox 94 L 02/01/18 23:00 Intake & Output 02/01/18 02/02/18 02/02/18 18:59 06:59 18:59 Other: Voiding Method Diaper # Voids 1 1 # Bowel Movements 1 0 - Exam Patient is lying in the bed comfortably, no acute distress, awake alert but nonverbal. HEENT: Normocephalic. Neck is supple. Pupils reactive. Nostrils clear. Oral cavity is moist. Ears reveal no drainage. Neck reveals no JVD, carotid bruits, or thyromegaly. CHEST EXAMINATION: Trachea is central. Symmetrical expansion. Lung reyes clear to auscultation and percussion. CARDIAC: Normal S1, S2 with no gallops. No murmurs ABDOMEN: Soft. Bowel sounds normal. No organomegaly. No abdominal bruits. Extremities: reveal no edema. No clubbing or cyanosis Neurologically awake, alert, nonverbal. with well-coordinated movements. No focal deficits noted Skin: No rash or skin lesions. Psychiatric: Noncooperative. Refuses to take medications and tests. Musculoskeletal: No joint swelling or deformity. Normal range of motion. - Labs CBC & Chem 7: 01/31/18 16:31 01/31/18 16:31 Assessment and Plan Assessment: Altered mental status likely due to underlying dementia. Rule out arrhythmia versus syncopal episode. Hypertrophic obstructive cardiomyopathy. Status post ICD placement Hypertension controlled Dementia Hyperlipidemia Baseline dysphagia and difficulty understand directions DVT prophylaxis GERD Osteoarthritis Bipolar disorder Plan: Continue on current medication regime ,monitoring and symptomatic treatment. Currently maintained pacemaker interrogation been attempted. Discharge planning in progress for subacute rehab tomorrow. Further recommendations to follow. The impression and plan of care has been dictated as directed. : I performed a history and examination of this patient, discussed the same with the dictator. I agree with the dictator's note ,documented as a scribe. Any additional findings or plans will be noted.
== END 2018-02-02 16:44 | DRG 884 ==
LOC: EC 16:08 → EEVIPCON 16:08 → 4MS4W 19:11
PROVIDERS: ADMIT Hospitalist; ATTEND Hospitalist
DX: F03.90 Unspecified dementia, unspecified severity, without behavioral disturbance, psychotic disturbance, mood disturbance, and anxiety (principal); I42.1 Obstructive hypertrophic cardiomyopathy; R47.01 Aphasia; I47.1 Supraventricular tachycardia; E78.5 Hyperlipidemia, unspecified; F31.9 Bipolar disorder, unspecified; I10 Essential (primary) hypertension; I25.10 Atherosclerotic heart disease of native coronary artery without angina pectoris; K21.9 Gastro-esophageal reflux disease without esophagitis; M19.90 Unspecified osteoarthritis, unspecified site; I95.9 Hypotension, unspecified; J98.6 Disorders of diaphragm; Z79.82 Long term (current) use of aspirin; Z79.899 Other long term (current) drug therapy; Z95.810 Presence of automatic (implantable) cardiac defibrillator; Z88.7 Allergy status to serum and vaccine; Z88.8 Allergy status to other drugs, medicaments and biological substances; Z53.20 Procedure and treatment not carried out because of patient's decision for unspecified reasons; R55 Syncope and collapse
CPT/HCPCS: 36415; 70450; 71046; 80053; 80164; 80306; 81003; 82550; 82553; 84484; 85025; 85610; 85730; 99285